=== PATIENT | female | born 1975 | race Two or more races ===

== ENCOUNTER 2023-06-28 18:18 | Emergency (ER) | payer OTHER ==
[~2023-06-28] VITALS: Ht 167.6 cm; Wt 75.6 kg
[2023-06-28 18:37] VITALS: O2SAT 96
[2023-06-28 19:41] VITALS: BP 168/98; PULSE 115; RESP 20
[2023-06-28] MEDS ORDERED: OXYMETAZOLINE HCL 0.05 % NASAL SPRAY 15ML ONE (19:47)
[2023-06-28] MEDS ORDERED: OXYMETAZOLINE HCL 0.05 % NASAL SPRAY 15ML EACHNOSTRI ONE (20:00)
[2023-06-28 20:13] LABS: Basophils # (auto) 0 10 ^3/uL (0-0.2); Basophils % (auto) 0.4 % (0.0-2.0); Eosinophils # (auto) 0 10 ^3/uL (0-0.8); Eosinophils % (auto) 0.4 % (0.0-7.0); Hematocrit 36.5 % (36.0-46.0); Hemoglobin 12.4 g/dL (12.2-16.2); Lymphocytes # (auto) 2.4 10 ^3/uL (0.4-5.4); Lymphocytes % (auto) 22.4 % (10.0-50.0); Mean Corpuscular Hemoglobin 33.5 pg (28.0-32.0); Mean Corpuscular Volume 98.7 fL (80.0-100.0); Monocytes # (auto) 0.5 10 ^3/uL (0-1.3); Neutrophils # (auto) 7.5 10 ^3/uL (1.6-8.6); Neutrophils % (auto) 71.8 % (37.0-80.0); Red Cell Distribution Width 12.3 % (11.8-14.3); White Blood Cell 10.5 10^3/uL (4.4-10.8)
== END 2023-06-28 22:12 | disposition home or self-care (01) ==
LOC: ER 18:18
DX: R04.0 Epistaxis (principal)
CPT/HCPCS: 30901; 36415; 85025; 86850; 86900; 86901